=== PATIENT | male | born 1935 | race Caucasian/White ===

== ENCOUNTER 2018-07-28 06:11 | Day surgery (SDC) | payer MEDICARE, OTHER ==
[~2018-07-28 06:11] MED LIST: Cyclopentolate 1% Opth Drop 2 ML BOT L EYE SCH; Fluorouracil 100 MG, Enoxaparin Sodium 25 MG, EPINEPHrine 0.3 MG in Ophthalmic Irrigati... IRR SCH; Phenylephrine 2.5% Ophth Soln 5 ML BOT FS SCH
[2018-07-28] MEDS ORDERED: Cyclopentolate 1% Opth Drop 2 ML BOT ONE (07:10)
[2018-07-28] MEDS ORDERED: Phenylephrine 2.5% Ophth Soln 5 ML BOT ONE (07:10)
[2018-07-28] MEDS ORDERED: Midazolam HCl 2 mg/2 ml Vial ONE (08:19)
[2018-07-28] MEDS ORDERED: PROPOFOL 20 ML ONE (08:19)
[2018-07-28] MEDS ORDERED: hydrALAZINE 20 MG/ML VIAL ONE (10:06)
--- NOTE | 2018-07-28 17:03 | OP ---
DATE OF PROCEDURE: 07/28/2018 PREOPERATIVE DIAGNOSIS: Epiretinal membrane, left eye. POSTOPERATIVE DIAGNOSIS: Epiretinal membrane, left eye. PROCEDURES PERFORMED: Pars plana vitrectomy and membrane peel, left eye. ANESTHESIA: Local with monitored anesthesia care. PROCEDURE IN DETAIL: The patient was identified in the preoperative holding area. Appropriate informed consent for the planned surgical procedure on the left eye had been obtained. The patient was transported to the operative suite. Appropriate cardiopulmonary monitoring was established. Local anesthesia was obtained. Using retrobulbar modified Van Lint lid block using 50:50 mixture of 4% lidocaine and 0.75% bupivacaine. The patient was prepped and draped in usual sterile manner for ophthalmic surgery. On the left eye, lid speculum was placed in the left eye. A 25-gauge trocar was placed through the conjunctiva and sclera superotemporally, inferotemporally, and supranasally. Infusion line was placed inferotemporally. Light pipe and vitreous cutter were inserted into the eye. Core vitrectomy was performed. posterior hyaloid face was elevated. This was lifted using vacuum suction, peeled across the macula. . Complete air-fluid exchange was performed with 10 minutes being left for fluid to drain posteriorly. Indirect ophthalmoscopy was used to examine the retina 360 degrees. Prophylactic laser was placed behind the sclerotomy sites. A 28% sulfur hexafluoride gas was infused into the eye. Trocars were removed. The eye was noted to retain pressure well. Retrobulbar Kenalog and subconjunctival Ancef were placed. Antibiotic ointment was placed, and the eye was patched and shielded. The patient was taken to the postoperative recovery unit in good condition, having suffered no immediate perioperative complications. The patient was instructed to keep patch and shield on, avoid lifting and bending, followup appointment with Dr. San. Job ID: [id number]
== END 2018-07-28 12:45 | disposition home or self-care (01) ==
LOC: SDC 06:11
PROVIDERS: ATTEND Ophthalmology Retina Specialist
PROC: 08T53ZZ Resection of Left Vitreous, Percutaneous Approach (ICD-10-PCS; principal; 2018-07-28)
PROC: 08NF3ZZ Release Left Retina, Percutaneous Approach (ICD-10-PCS; 2018-07-28)
DX: H35.372 Puckering of macula, left eye (principal)
CPT/HCPCS: 67025; J0171; J0360; J1650; J2250; J2704; J9190

== ENCOUNTER 2018-11-24 05:54 | Day surgery (SDC) | payer MEDICARE, OTHER ==
[2018-11-23 10:42] VITALS: BMI 22.1
[2018-11-24] MEDS ORDERED: Fluorouracil 100 MG, Enoxaparin Sodium 25 MG, EPINEPHrine 0.3 MG in Ophthalmic Irrigati... IRR SCH (06:00)
[2018-11-24] MEDS ORDERED: Phenylephrine 2.5% Ophth Soln 5 ML BOT ONE (06:12)
[2018-11-24] MEDS ORDERED: Cyclopentolate 1% Opth Drop 2 ML BOT ONE (06:12)
[2018-11-24] MEDS ORDERED: Fentanyl 100 MCG/2 ML VIAL ONE (06:31)
[2018-11-24] MEDS ORDERED: PROPOFOL 20 ML ONE (06:31)
--- NOTE | 2018-11-24 09:26 | OP ---
DATE OF PROCEDURE: 11/24/2018 PREOPERATIVE DIAGNOSIS: Rhegmatogenous retinal detachment, left eye. POSTOPERATIVE DIAGNOSIS: Rhegmatogenous retinal detachment, left eye. PROCEDURES PERFORMED: Pars plana vitrectomy, complex retinal detachment repair, left eye. ANESTHESIA: Local with monitored anesthesia care. PROCEDURE IN DETAIL: The patient was identified in the preoperative holding area. Appropriate informed consent for the planned surgical procedure on the left eye had been obtained. The patient was transported to the operative suite. Appropriate cardiopulmonary monitoring was established. Local anesthesia was obtained using retrobulbar modified Van Lint lid block using 50:50 mixture of 4% lidocaine and 0.75% bupivacaine. The patient was prepped and draped in usual sterile manner for ophthalmic surgery on the left eye. Lid speculum was placed in the left eye, 25-gauge trocar was placed in conjunctivae and sclerae superotemporally, inferotemporally, and supranasally. Infusion line was placed inferotemporally. Light pipe vitreous cutter was inserted to the eye. Core vitrectomy was performed. Vitreous base was trimmed back particularly 360 degrees using wide field viewing system. Posterior drained retinotomy was created. The fluid was drained from underneath the retina. Scleral buckle was placed through after conjunctival peritomy around the equator and fastened in the oblique quadrants using 5-0 [place] sutures ligated end-to-end with 3083 sleeve superotemporally. 360 laser was placed into all the 360 periphery on the scleral buckle and around the posterior drained retinotomy. 15% propane gas was infused into the eye. Trocars were removed. Sclerotomy was suture closed. Intra-ocular pressure was noted to be normal. Retrobulbar Kenalog and subconjunctival Ancef were placed. Conjunctivae were sutured closed with 6-0 plain gut suture. Antibiotic and atropine ointment were placed. The eye was patched and shielded. The patient was advised to position right or left side down. Followup appointment with Dr. San. Job ID: [id number]
== END 2018-11-24 09:15 | disposition home or self-care (01) ==
LOC: SDC 05:54
PROVIDERS: ATTEND Ophthalmology Retina Specialist
PROC: 08T53ZZ Resection of Left Vitreous, Percutaneous Approach (ICD-10-PCS; principal; 2018-11-24)
PROC: 08U13JZ Supplement of Left Eye with Synthetic Substitute, Percutaneous Approach (ICD-10-PCS; 2018-11-24)
DX: H33.002 Unspecified retinal detachment with retinal break, left eye (principal)
CPT/HCPCS: 67025; J0171; J1650; J2704; J3010; J9190